=== PATIENT | female | born 1965 | race Caucasian/White ===

== ENCOUNTER 2021-04-15 18:30 | Inpatient (IN) | payer MEDICARE, OTHER ==
[~2021-04-15] VITALS: Ht 167.6 cm; Wt 74.4 kg
[~2021-04-15 18:30] MED LIST: ASPIRIN81 MG PO; HABITROL 14 MG P1 EA TD; LIPITOR40 MG PO; LISINOPRIL10 MG PO; LISINOPRIL20 MG PO; NEURONTIN 300300 MG PO; NORCO 5-325 TA1 EACH PO
[2021-04-15 19:29] LABS: HEMOGLOBIN 16.8 gm/dl (12.3-15.3); RED BLOOD COUNT 5.14 M/UL (4.00-5.10); WHITE BLOOD COUNT 10.5 K/UL (4.5-11.0)
[2021-04-15 19:41] LABS: BUN/CREATININE RATIO 15 (0-10)
[2021-04-17 05:01] LABS: HEMOGLOBIN 14.4 gm/dl (12.3-15.3); RED BLOOD COUNT 4.44 M/UL (4.00-5.10); WHITE BLOOD COUNT 7.5 K/UL (4.5-11.0)
[2021-04-17 05:29] LABS: BUN/CREATININE RATIO 27 (0-10)
[2021-04-17] MEDS ORDERED: HYDROCODON-ACE1 EAC2 PO (11:23)
[2021-04-17] MEDS ORDERED: GABAPENTIN300 MG PO (11:23)
[2021-04-17] MEDS ORDERED: LISINOPRIL20 MG PO (11:24)
[2021-04-18 05:40] LABS: RED BLOOD COUNT 4.61 M/UL (4.00-5.10); WHITE BLOOD COUNT 6.4 K/UL (4.5-11.0)
[2021-04-18 05:58] LABS: BUN/CREATININE RATIO 20 (0-10)
[2021-04-18] MEDS ORDERED: GLUCOPHAGE 500500 MG PO (12:22)
[2021-04-18] MEDS ORDERED: CEPHALEXIN500 M1 PO (12:22)
[2021-04-18] MEDS ORDERED: VIBRAMYCIN100 MG PO (12:22)
--- NOTE | 2021-04-18 13:28 | NUR ---
INSTRUCTED PATIENT AND MEDS E-SCRIPTED TO [facility]ZA DR[facility]. VERBALIZED IMPORTANCE OF TAKING ALL MEDS UNTIL COMPLETE. KEEP FOLLOW UP WITH DR. KHANNA. VERBALIZED UNDERSTANDING. TEAGAN AVILEZ R.N.
== END 2021-04-18 13:44 | disposition home or self-care (01) | DRG 300 ==
LOC: ER1 18:30 → CDU 23:32 → M/S 23:32
PROVIDERS: Family Medicine; Physician Assistant; ADMIT Internal Medicine Infectious Disease
DX: E11.51 Type 2 diabetes mellitus with diabetic peripheral angiopathy without gangrene (principal); L03.116 Cellulitis of left lower limb; L03.031 Cellulitis of right toe; E11.621 Type 2 diabetes mellitus with foot ulcer; E11.42 Type 2 diabetes mellitus with diabetic polyneuropathy; F17.210 Nicotine dependence, cigarettes, uncomplicated; Z20.822 Contact with and (suspected) exposure to COVID-19; L97.519 Non-pressure chronic ulcer of other part of right foot with unspecified severity; I10 Essential (primary) hypertension; Z79.4 Long term (current) use of insulin; Z86.73 Personal history of transient ischemic attack (TIA), and cerebral infarction without residual deficits; Z79.82 Long term (current) use of aspirin; Z90.710 Acquired absence of both cervix and uterus; Z85.89 Personal history of malignant neoplasm of other organs and systems; Z83.3 Family history of diabetes mellitus; Z82.49 Family history of ischemic heart disease and other diseases of the circulatory system
CPT/HCPCS: 36415; 73630; 73701; 73718; 80048; 80053; 80202; 82962; 85025; 85652; 86140; 87040; 87070; 87081; 87205; 93005; 93925; 96365; 96366; 96374; 96375; 96376; 99284; G0378; J0692; J1650; J3370; J7030; J7070; Q9967; U0002

== ENCOUNTER 2022-08-05 15:21 | Emergency (ER) | payer MEDICARE, OTHER ==
[~2022-08-05 15:21] MED LIST changes: +CEPHALEXIN500 M1 PO; +GABAPENTIN300 MG PO; +GLUCOPHAGE 500500 MG PO; +HYDROCODON-ACE1 EAC2 PO; +VIBRAMYCIN100 MG PO
[2022-08-05 16:51] LABS: HEMOGLOBIN 15.7 gm/dl (12.3-15.3); RED BLOOD COUNT 4.77 M/UL (4.00-5.10); WHITE BLOOD COUNT 15.7 K/UL (4.5-11.0)
[2022-08-05 17:30] LABS: BUN/CREATININE RATIO 19 (0-10)
== END 2022-08-05 21:58 | disposition home or self-care (01) ==
LOC: ER1 15:21
PROVIDERS: Physician Assistant Medical
DX: L03.115 Cellulitis of right lower limb (principal); R00.0 Tachycardia, unspecified; E11.40 Type 2 diabetes mellitus with diabetic neuropathy, unspecified; I10 Essential (primary) hypertension; E78.5 Hyperlipidemia, unspecified; Z86.73 Personal history of transient ischemic attack (TIA), and cerebral infarction without residual deficits; Z90.710 Acquired absence of both cervix and uterus; Z88.8 Allergy status to other drugs, medicaments and biological substances; F17.210 Nicotine dependence, cigarettes, uncomplicated; Z51.81 Encounter for therapeutic drug level monitoring
CPT/HCPCS: 80053; 85025; 85610; 93971; 99284; J3370